=== PATIENT | male | born 1960 | race Caucasian/White ===

== ENCOUNTER 2018-09-14 12:11 | Emergency (ER) | payer BC ==
--- NOTE | 2018-09-14 12:38 | Emergency Department Record ---
History of Present Illness - General Chief complaint: Lower Extremity Pain Stated complaint: LEG/PAIN Time Seen by Provider: 09/14/18 12:27 Source: Patient Mode of Arrival: Ambulatory Limitations: No limitations - History of Present Illness Initial comments: 57 yo male presents with right lower leg pain, swelling, and bruising. He slipped in his boat on Thursday. He hit the anterior rubi on the boat in the upper third of the tibia. He was seen at work today for calf and lower leg pain, swelling and bruising. He was referred to the ED. He has been able to ambulate but with pain. No blood thinners. No numbness or tingling. No history of DVT. PCP Fredo. He is back to work on his feet for long hours. MD Complaint: Extremity pain, Other (Lower anterior leg injury) Onset/Timin -: Days(s) Location: Right, Lower Leg -: Yes Arthralgia, Yes Myalgia Radiation: Proximal, Distal Severity scale (1-10): 3 Quality: Aching Consistency: Constant Improves with: Nothing Worsens with: Nothing Associated Symptoms: Denies other symptoms - Related Data Home Medications Medication Instructions Recorded Confirmed Last Taken No Home Med [NO HOME MEDS] 09/14/18 09/14/18 Unknown Allergies Allergy/AdvReac Type Severity Reaction Status Date / Time tetanus immune globulin Allergy unknown Verified 09/14/18 12:27 Travel Screening - Travel/Exposure Within Last 30 Days Have you traveled within the last 30 days?: No Review of Systems Constitutional: Denies: Chills, Fever, Malaise, Weakness Eyes: Denies: Eye discharge ENT: Denies: Congestion, Throat pain Respiratory: Denies: Cough, Dyspnea Cardiovascular: Denies: Chest pain, Syncope Endocrine: Denies: Fatigue Gastrointestinal: Denies: Abdominal pain, Diarrhea, Nausea, Vomiting Genitourinary: Denies: Dysuria, Frequency, Hematuria Musculoskeletal: Reports: Arthralgia, Myalgia Skin: Reports: Bruising, Change in color Neurological: Denies: Numbness, Tingling, Weakness Psychiatric: Denies: Anxiety Hematological/Lymphatic: Denies: Blood Clots, Easy bleeding, Easy bruising Past Medical History - SOCIAL HISTORY Smoking Status: Never smoker Alcohol Use: None Drug Use: None - RESPIRATORY Hx Respiratory Disorders: No - CARDIOVASCULAR Hx Cardio Disorders: No - NEURO Hx Neuro Disorders: No - GI Hx GI Disorders: No - Hx Genitourinary Disorders: No - ENDOCRINE Hx Endocrine Disorders: No - MUSCULOSKELETAL Hx Musculoskeletal Disorders: No - PSYCH Hx Psych Problems: No - HEMATOLOGY/ONCOLOGY Hx Hematology/Oncology Disorders: No Family Medical History Any Significant Family History?: Yes *Diabetes Comment: cousins Hx Heart Disease: Grandparents Physical Exam - General General Appearance: Alert, Oriented x3, Cooperative, No acute distress Limitations: No limitations - Head Head exam: Atraumatic - Eye Eye exam: Normal appearance. negative: Conjunctival injection - ENT ENT exam: Normal exam Ear exam: Normal external inspection Nasal Exam: Normal inspection Mouth exam: Normal external inspection - Neck Neck exam: Normal inspection - Respiratory Respiratory exam: Normal lung sounds bilaterally. negative: Decreased breath sounds, Rhonchi, Stridor, Wheezes - Cardiovascular Cardiovascular Exam: Regular rate, Normal rhythm, Normal heart sounds Peripheral Pulses: 2+: Dorsalis Pedis (R) - exam: Deferred - Extremities Extremities exam: Full ROM, Pedal edema, Tenderness. negative: Normal inspection Image of Full Body: 1 - original injury site, mild swelling, tender, bruising 2 - diffuse bruising and swelling, very soft muscles, no signs of compartment syndrome, achilles intact, ankle mild swelling and bruising - Back Back exam: Reports: Full ROM - Neurological Neurological exam: Alert, Oriented X3 - Psychiatric Psychiatric exam: Normal affect, Normal mood - Skin Skin exam: Other Course Vital Signs 09/14/18 12:22 Temperature 97.6 F Pulse Rate 70 Respiratory 20 Rate Blood Pressure 128/95 Pulse Ox 96 - Reevaluation(s) Reevaluation #1: 09/14/18 13:14 The XR was reviewed No acute bone abnormality 09/14/18 13:54 The Venous doppler is negative for DVT. Fluid collections noted. With his clinical history likely small hematoma I discussed the results with the patient and SO I encourage 2-3 days of elevation to decrease intensity of symptoms. He stands all day at work unfortunately His leg is very soft without any signs of compartment syndrome We discussed follow up and reasons to return to the ED as well. 09/14/18 14:22 Disposition Disposition: Discharge Clinical Impression: Hematoma Contusion of leg, right Qualifiers: Encounter type: initial encounter Qualified Code(s): S80.11XA - Contusion of right lower leg, initial encounter Disposition: Home, Self-Care Condition: (1) Good Instructions: Hematoma (ED) Additional Instructions: Elevated the leg as much as possible The more you stand on the leg the longer the swelling will last Call your doctor for a recheck in any pain remains in the next week Return sooner or immediate if the pain sudden becomes severe, numb or tingling, abnormally cool or warm Forms: Patient Portal Access Time of Disposition: 13:55 Quality - Quality Measures Quality Measures: N/A - Blood Pressure Screening Does Patient Have Any of the Following: No Blood Pressure Classification: Hypertensive Reading Systolic Measurement: 128 Diastolic Measurement: 95 Screening for High Blood Pressure: < Pre-Hypertensive BP, F/U Documented > [G8950] Pre-Hypertensive Follow-up Interventions: Referral to alternative/primary care provider.
--- NOTE | 2018-09-17 05:32 | US VENOUS DOPPLER REPORT ---
EXAM: ULTRASOUND VENOUS DOPPLER LOWER EXT RT HISTORY: SWELLING AND BRUISING SINCE FALL THREE DAYS AGO. TECHNIQUE: St-scale, color Doppler, and duplex Doppler evaluation of the deep venous structures of the right lower extremity performed from the level of the external iliac vein through the calf veins. Additional imaging of the external iliac, common femoral, and greater saphenous veins on the left also performed. COMPARISON: Same-day radiographic examination of the right lower leg. FINDINGS: On the right, the external iliac, common femoral, deep femoral, greater saphenous, superficial femoral, and popliteal veins are anechoic and completely compressible. Normal venous waveforms are noted at all of these levels and these waveforms are augmentable. The peroneal, posterior tibial, anterior tibial veins appear patent with augmentable waveforms. No evidence of DVT within the external iliac, common femoral, nor greater saphenous veins on the left. Incidental note is made of a complex collection in the anterior soft tissues of the proximal to mid lower leg measuring 3.4 x 1.6 x 0.8 cm. A similar focus is noted in the region of the ankle measuring 1 x 1.9 x 0.8 cm. These are likely small hematomas. IMPRESSION: 1. NO EVIDENCE OF DEEP VENOUS THROMBOSIS WITHIN THE RIGHT LOWER EXTREMITY. 2. SMALL COMPLEX COLLECTIONS IN THE SOFT TISSUES IN THE REGION OF THE RIGHT GABRIEL AND RIGHT ANKLE ARE NONSPECIFIC BUT LIKELY SMALL HEMATOMAS. JOB NUMBER: [id number] [facility]
== END 2018-09-14 14:06 | disposition home or self-care (01) ==
LOC: ER 12:11
DX: S80.11XA Contusion of right lower leg, initial encounter (principal); M79.661 Pain in right lower leg; W01.10XA Fall on same level from slipping, tripping and stumbling with subsequent striking against unspecified object, initial encounter; Y93.19 Activity, other involving water and watercraft
CPT/HCPCS: 99283; 99284